=== PATIENT | male | born 1965 ===

== ENCOUNTER 2022-05-22 16:46 | Emergency (ER) | payer SELFPAY ==
[2022-05-22 17:01] VITALS: BP 154/100
== END 2022-05-24 10:11 | disposition left against medical advice (07) ==
LOC: ED 16:46
DX: S89.81XA Other specified injuries of right lower leg, initial encounter (principal); Z53.21 Procedure and treatment not carried out due to patient leaving prior to being seen by health care provider; X58.XXXA Exposure to other specified factors, initial encounter; Y93.89 Activity, other specified; Y92.89 Other specified places as the place of occurrence of the external cause; Y99.8 Other external cause status